=== PATIENT | male | born 1965 | race Caucasian/White ===

== ENCOUNTER 2018-12-20 09:54 | Emergency (ER) | payer OTHER ==
[~2018-12-20] VITALS: Ht 185.4 cm; Wt 103.0 kg
[2018-12-20 10:01] VITALS: BP 185/122
== END 2018-12-20 12:55 | disposition home or self-care (01) ==
LOC: ER 09:55
DX: S60.212A Contusion of left wrist, initial encounter (principal); S60.211A Contusion of right wrist, initial encounter; X58.XXXA Exposure to other specified factors, initial encounter; Y93.89 Activity, other specified; Y92.89 Other specified places as the place of occurrence of the external cause; Y99.8 Other external cause status
CPT/HCPCS: 73110; 99284